=== PATIENT | female | born 1960 | race African-American/Black ===

== ENCOUNTER 2019-07-30 19:40 | Emergency (ER) | payer MEDICARE, OTHER ==
[~2019-07-30] VITALS: Ht 167.6 cm; Wt 117.9 kg
[~2019-07-30 19:40] MED LIST: GUAIFENESI100 MG/5 M ORAL; METOPROLOL TART25 MG ORAL; NITROFURANTOIN100 M2 ORAL; VOLTAREN100 G1 TP
--- NOTE | 2019-07-30 19:55 | NUR ---
ED Nurse Note: PT WALKED IN C/O UPPER LIP SWELLING SINCE AM. PT DENIES TRAUMA AND DOES NOT RECALL EVENTS PRIOR TO EVENT. PT STATES TAKING LISINOPRIL 10 MG, CHLORTHALIRONE 25MG, ASA81 MG AT 2/6 AM. PT STATES SHE WAS OFF MEDS FOR A FEW MONTHS BUT RECENTLY STARTED MED AGAIN. PT DENIES SOB, CP, OR THROAT SWELLING. PT O2 AT 98 RA.
[2019-07-30] MEDS ORDERED: ASPIR 8181 MG ORAL (20:00)
[2019-07-30] MEDS ORDERED: CHLORTHALIDONE25 MG ORAL (20:00)
[2019-07-30] MEDS ORDERED: LISINOPRIL10 MG ORAL (20:00)
[2019-07-30 20:46] VITALS: BP 135/88
--- NOTE | 2019-07-30 20:54 | Emergency Room Report ---
"History of Present Illness General Chief Complaint: Edema Source: Patient Present Illness HPI Patient is a 59-year-old female presents after increased upper lip swelling. Patient gradual onset of symptoms. She reports having onset this morning. She had prior history of hypertension for which he takes lisinopril. She is also taking aspirin daily. Denies any fever. Denies any trouble breathing. Reports having upper lip isolated swelling. Denies any recent trauma. Denies any fever or pain. She had taken 2 doses of Benadryl earlier in the day without any improvement. Denies any shortness of breath or leg swelling. Allergies: Coded Allergies: No Known Allergies (Unverified , 09/29/14) Patient History Past Medical History: see triage record, HTN Last Menstrual Period: na Reviewed Nursing Documentation: PMH: Agreed; PSxH: Agreed Nursing Documentation-PMH Hx Hypertension: Yes Review of Systems All Other Systems: negative except mentioned in HPI Physical Exam Vital Signs Date Time Temp Pulse Resp B/P (MAP) Pulse Ox O2 Delivery O2 Flow Rate FiO2 07/30/19 19:51 98.6 100 16 131/87 (102) 98 Room Air Sp02 EP Interpretation: reviewed, normal General Appearance: normal inspection, well appearing, no apparent distress, alert, GCS 15, non-toxic Head: atraumatic ENT: hearing grossly normal, normal pharynx, normal voice, uvula midline, other - Upper lip swelling, no upper lip swelling, no tongue swelling, no uvular swelling Neck: normal inspection, full range of motion, supple, no bony tend Respiratory: normal inspection, lungs clear, normal breath sounds, no respiratory distress, no retraction, no wheezing Cardiovascular #1: regular rate, rhythm, no edema Gastrointestinal: normal inspection, normal bowel sounds, non tender, soft, no guarding, no hernia Genitourinary: no CVA tenderness Musculoskeletal: normal inspection, back normal, normal range of motion Neurologic: alert, motor strength/tone normal, sterilization specialist III-XII nml as tested, responsive, speech normal, normal inspection Psychiatric: normal inspection, judgement/insight normal, mood/affect normal Medical Decision Making Diagnostic Impression: Primary Impression: Angio-edema ER Course Patient presented for upper lip swelling. Differential diagnosis include was not limited to angioedema, allergic reaction, lip infection, among others. Patient has a benign exam and does not appear to require any imaging or laboratory testing at this time. Patient was observed in the emergency department had no progression of swelling. She was advised to discontinue her SUDARSHAN inhibitor. She was also advised that she may need to discontinue taking aspirin. she is advised to follow-up with her primary care physician for recheck. She is advised to return if she began having any difficulty breathing or swelling of her tongue or other concerns. The patient is advised to follow up with primary care doctor in 1-2 days. Patient is advised to return if any worsening condition or if any changes in status that are concerning. This report is dictated with [employer] innov[employer] | mentor | invest instrument shop supervisor software which may occasionally lead to discrepancies related to use of this software. Last Vital Signs Date Time Temp Pulse Resp B/P (MAP) Pulse Ox O2 Delivery O2 Flow Rate FiO2 07/30/19 19:51 98.6 100 16 131/87 (102) 98 Room Air Venu Goodwin MD Jul 30, 2019 20:54"
[2019-07-30] MEDS ORDERED: DiphenhydrAMINE 50mg/ml Inj IVP ONE (21:00)
[2019-07-30] MEDS ORDERED: Dexamethasone 4mg/ml vial IVP ONE (21:00)
--- NOTE | 2019-07-30 21:15 | NUR ---
ED Nurse Note: blood drawn and sent to lab
[2019-07-30 21:37] LABS: BASOPHILS % (AUTO) 0.6 % (0.0-2.0); EOSINOPHILS % (AUTO) 0.2 % (0.0-3.0); HEMATOCRIT 37.4 % (37.0-47.0); HEMOGLOBIN 12.1 G/DL (12.0-16.0); LYMPHOCYTES % (AUTO) 28.4 % (20.0-45.0); MEAN CORPUSCULAR VOLUME 82 FL (80-99); MONOCYTES % (AUTO) 5.4 % (1.0-10.0); NEUTROPHILS % (AUTO) 65.4 % (45.0-75.0); PLATELET COUNT 263 K/UL (150-450); RED BLOOD COUNT 4.57 M/UL (4.20-5.40); RED CELL DISTRIBUTION WIDTH 13.6 % (11.6-14.8); WHITE BLOOD COUNT 8.7 K/UL (4.8-10.8)
[2019-07-30 21:56] LABS: ANION GAP 10 mmol/L (5-15); BLOOD UREA NITROGEN 21 mg/dL (7-18); CALCIUM 9.5 MG/DL (8.5-10.1); CARBON DIOXIDE 26 MMOL/L (21-32); CHLORIDE 103 MMOL/L (98-107); CREATININE 0.9 MG/DL (0.55-1.30); POTASSIUM 3.4 MMOL/L (3.5-5.1); SODIUM 139 MMOL/L (136-145)
[2019-07-30 22:01] LABS: ALANINE AMINOTRANSFERASE 28 U/L (12-78); ALBUMIN 3.3 G/DL (3.4-5.0); ALBUMIN/GLOBULIN RATIO 0.7 (1.0-2.7); ALKALINE PHOSPHATASE 64 U/L (46-116); ASPARTATE AMINO TRANSFERASE 21 U/L (15-37)
[2019-07-30 22:21] LABS: BILIRUBIN,TOTAL 0.3 MG/DL (0.2-1.0)
[2019-07-30 22:40] VITALS: BP 133/72
--- NOTE | 2019-07-30 22:40 | NUR ---
ER DISCHARGE NOTE: Patient is cleared to be discharged per ERMD, pt is aox4, on room air, with stable vital signs. pt was given dc instructions, pt was able to verbalize understanding, pt id band and iv site removed without complications. pt is able to ambulate with steady gait. pt took all belongings.
== END 2019-07-30 22:40 | disposition home or self-care (01) ==
LOC: EMR 21:33
DX: T78.3XXA Angioneurotic edema, initial encounter (principal); I10 Essential (primary) hypertension; X58.XXXA Exposure to other specified factors, initial encounter; Y92.9 Unspecified place or not applicable
CPT/HCPCS: 36415; 80053; 85025; 96374; 96375; 99284; J1100; J1200